=== PATIENT | female | born 1990 | race Caucasian/White ===

== ENCOUNTER 2022-02-05 17:32 | Emergency (ER) | payer OTHER, SELFPAY ==
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
[2022-02-05 17:53] VITALS: BP 143/71; PULSE 67; RESP 18; TEMP 36.6; O2SAT 100
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
== END 2022-02-05 19:25 | disposition home or self-care (01) ==
PROVIDERS: Emergency Provider Nurse Practitioner
DX: M54.6 Pain in thoracic spine (principal); E78.00 Pure hypercholesterolemia, unspecified; I10 Essential (primary) hypertension; G40.909 Epilepsy, unspecified, not intractable, without status epilepticus
CPT/HCPCS: 72072; 72100; 99213; G0463

== ENCOUNTER 2022-02-14 15:58 | Emergency (ER) | payer OTHER, SELFPAY ==
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
[2022-02-14 16:03] VITALS: BP 137/74; PULSE 137; PULSE 88; RESP 16; TEMP 36.7; O2SAT 99
== END 2022-02-14 16:37 | disposition home or self-care (01) ==
PROVIDERS: Emergency Provider Nurse Practitioner Family
DX: S90.01XA Contusion of right ankle, initial encounter (principal); Y35.811A Legal intervention involving manhandling, law enforcement official injured, initial encounter; G40.909 Epilepsy, unspecified, not intractable, without status epilepticus; E78.00 Pure hypercholesterolemia, unspecified; I10 Essential (primary) hypertension
CPT/HCPCS: 73610; 99213; G0463

== ENCOUNTER 2022-03-04 10:14 | Emergency (ER) | payer OTHER, SELFPAY ==
--- NOTE | 2022-03-04 10:17 | ED.URI ---
HPI - URI/Sore Throat General Chief Complaint: Upper Respiratory Infection Stated Complaint: congestion aches Time Seen by Provider: 03/04/22 10:17 Source: patient and RN notes reviewed History of Present Illness HPI Narrative: Patient is a 31-year-old female who presents the urgent care with complaints of congestion, runny nose and cough. Patient also reports a mild sore throat. Denies of any fever or body aches. States that it started 1 week ago and she has been taking DayQuil, NyQuil, Mucinex and [place] all. Patient denies of any known ill contacts but states her girlfriend did start running a fever last night. No other acute complaints. No acute distress noted. Patient aware of the plan of care. Some parts of this dictation were generated by voice recognition software and may contain typographical and/or grammatical inaccuracies. Related Data Home Medications Medication Instructions Recorded Confirmed levetiracetam [Keppra] 500 mg PO BID 02/05/22 02/14/22 losartan 100 mg PO DAILY 02/05/22 02/14/22 metoprolol succinate [Toprol XL] 50 mg PO DAILY 02/05/22 02/14/22 rosuvastatin [Crestor] 10 mg PO DAILY 02/05/22 02/14/22 albuterol 90 mcg INHALATION Q6H PRN 03/04/22 03/04/22 Allergies Allergy/AdvReac Type Severity Reaction Status Date / Time sertraline [From Zoloft] Allergy Rash Verified 03/04/22 10:34 Review of Systems Review of Systems: CONSTITUTIONAL: Denies fever, chills, or sweats. EYES: Denies visual changes, redness, or discharge. ENT: Reports of congestion, sore throat and postnasal drainage CARDIOVASCULAR: Denies chest pain, palpitations, or edema. RESPIRATORY: Reports of cough GASTROINTESTINAL: Denies abdominal pain, nausea, vomiting, or diarrhea. GENITOURINARY: Denies dysuria or hematuria. SKIN: Denies rash or itching. MUSCULOSKELETAL: Denies back pain, joint pain, or myalgia. NEUROLOGIC: Denies headache, numbness, or weakness. All other systems reviewed are negative, except as documented in HPI. [facility] Comments At the time of my signature, I reviewed and agree with the nursing past medical, surgical, social, and family history. There is no relevant family history pertinent to the patient complaint. Exam Narrative: GENERAL: This is a well-nourished, well-developed patient, in no apparent distress. HEAD: normocephalic, atraumatic. EYES: PERRL. Sclera clear/white. Vision is grossly intact. EARS: External ears normal, auditory canals clear and without drainage, TMs normal without perforation. Hearing grossly intact. NOSE: External nose normal with no obvious nasal discharge, nares without redness, no rhinorrhea. THROAT: Mucous membranes moist, posterior pharynx clear. Moderate postnasal drainage NECK: Neck supple CARDIOVASCULAR: Regular rate and rhythm without murmurs, gallops, or rubs. RESPIRATORY: Clear to auscultation. Breath sounds equal bilaterally. No wheezes, rales, or rhonchi. SKIN: warm, intact with no suspicious lesions or rash, good texture and turgor. NEURO: awake, alert, and oriented to person, place and time. There were no obvious focal neurologic abnormalities. EXTREMITIES: No clubbing, cyanosis, or edema. Course Course Level of Care: Express Care Visit Vital Signs Vital signs: Vital Signs Temperature 98.0 F 03/04/22 10:23 Pulse Rate 77 03/04/22 10:23 Respiratory Rate 14 03/04/22 10:23 Blood Pressure 149/80 H 03/04/22 10:23 Pulse Oximetry 100 03/04/22 10:23 Temperature 98.0 F 03/04/22 10:23 Pulse Rate 77 03/04/22 10:23 Respiratory Rate 14 03/04/22 10:23 Blood Pressure 149/80 H 03/04/22 10:23 Pulse Oximetry 100 03/04/22 10:23 Reviewed-patient is informed that they may have pre-hypertension or hypertension based on a blood pressure reading in the department. I recommend the patient call the primary care provider listed on their discharge instructions or a physician of their choice this week to arrange follow-up for further evaluation of possible
[2022-03-04 10:23] VITALS: BP 149/80; PULSE 77; RESP 14; TEMP 36.7; O2SAT 100
== END 2022-03-04 11:27 | disposition home or self-care (01) ==
PROVIDERS: Emergency Provider Nurse Practitioner Family
DX: J06.9 Acute upper respiratory infection, unspecified (principal); E78.00 Pure hypercholesterolemia, unspecified; I10 Essential (primary) hypertension; J45.909 Unspecified asthma, uncomplicated; D49.89 Neoplasm of unspecified behavior of other specified sites
CPT/HCPCS: 99213; G0463

== ENCOUNTER 2022-04-23 12:32 | Emergency (ER) | payer OTHER, SELFPAY ==
--- NOTE | ~2022-04-23 | XR_ITS ---
EXAMINATION: XR forearm LT 2V DATE: 04/23/2022 13:22 INDICATION: Left forearm injury. TECHNIQUE: 2 views of left forearm were obtained. COMPARISON: None. FINDINGS: Bone alignment is normal. No fracture. Joint spaces are well maintained. There is no elbow joint effusion. IMPRESSION: 1. No fracture. Reviewed, dictated and finalized at location B. IMPRESSION: 1. No fracture.
--- NOTE | ~2022-04-23 | XR_ITS ---
EXAMINATION: XR forearm RT 2V DATE: 04/23/2022 13:23 INDICATION: Right forearm injury. TECHNIQUE: 2 views of right forearm were obtained. COMPARISON: None. FINDINGS: Bone alignment is normal. No fracture. Joint spaces are well maintained. There is no elbow joint effusion. IMPRESSION: 1. No fracture. Reviewed, dictated and finalized at location B. IMPRESSION: 1. No fracture.
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
[2022-04-23 12:45] VITALS: BP 132/41; PULSE 61; RESP 20; TEMP 36.8; O2SAT 100
== END 2022-04-23 13:40 | disposition home or self-care (01) ==
PROVIDERS: Emergency Provider Nurse Practitioner
DX: S59.912A Unspecified injury of left forearm, initial encounter (principal); S59.911A Unspecified injury of right forearm, initial encounter; X58.XXXA Exposure to other specified factors, initial encounter
CPT/HCPCS: 73090; 99214; G0463

== ENCOUNTER 2022-06-27 23:18 | Observation (INO) | payer OTHER, SELFPAY ==
--- NOTE | ~2022-06-27 | CT_ITS ---
EXAMINATION: CT abdomen pelvis w con DATE: 06/28/2022 00:23 INDICATION: Abdomen pain TECHNIQUE: Computed tomography (CT) of the abdomen and pelvis was performed without intravenous contr ast. The dose-length product was 897.37 mGy-cm. Automated exposure control and iterative reconstructi on technique were employed. COMPARISON: None. FINDINGS: There is a 4 mm right middle lobe nodule. Otherwise, lung bases unremarkable. Heart size no rmal. No significant pleural or pericardial effusion. No significant vascular abnormality. No lymphad enopathy. The liver, spleen, pancreas, adrenal glands and kidneys are unremarkable. Appendix is thickened with enhancement and surrounding inflammatory change, consistent with acute uncomplicated appendicitis. No evidence for perforation or abscess. No free air. No abnormal pelvic masses. Mild sclerosis of the s acroiliac joints, left greater than right, possibly secondary to sacroiliitis. IMPRESSION: 1. Acute uncomplicated appendicitis. Reviewed, dictated and finalized at location B.
[2022-06-27 23:21] VITALS: BP 150/82; PULSE 82; RESP 16; TEMP 36.4; O2SAT 100
--- NOTE | 2022-06-27 23:38 | ED.ABDPAIN ---
HPI - Abdominal Pain General Chief Complaint: Abdominal Pain Stated Complaint: RLQ pain x1 day. Time Seen by Provider: 06/27/22 23:27 Source: RN notes reviewed History of Present Illness HPI narrative: Patient presents emergency room from home for abdominal pain. Patient states pain is located the right lower quadrant does not radiate. Pain is described as sharp and stabbing pain does not radiate associated with nausea vomiting. Denies any diarrhea denies any fevers or chills chest pain or shortness of breath. Patient states he been taking ibuprofen at home with minimal relief Related Data Home Medications Medication Instructions Recorded Confirmed levetiracetam 500 mg tablet 500 mg PO BID 02/05/22 04/23/22 (Keppra) losartan 100 mg tablet 100 mg PO DAILY 02/05/22 04/23/22 metoprolol succinate 50 mg 50 mg PO DAILY 02/05/22 04/23/22 tablet,extended release 24 hr (Toprol XL) rosuvastatin 10 mg tablet (Crestor) 10 mg PO DAILY 02/05/22 04/23/22 albuterol sulfate 0.63 mg/3 mL 3 ml continuous nebulization Q4-6H 04/23/22 04/23/22 solution for nebulization PRN Shortness Of Breath Or Wheezing albuterol sulfate 90 mcg/actuation 2 puff inhalation QID PRN 04/23/22 04/23/22 aerosol inhaler Shortness Of Breath Or Wheezing carvedilol 25 mg tablet (Coreg) 1 tablet PO BID 04/23/22 04/23/22 Allergies Allergy/AdvReac Type Severity Reaction Status Date / Time sertraline [From Zoloft] Allergy Mild Rash Verified 06/27/22 23:33 Review of Systems Review of Systems: Gen.: Denies fevers or chills ENT: Denies congestion Respiratory: Denies shortness of breath or cough CV: Denies chest pain or palpitations GI: see HPI denies burning, urgency, frequency or hematuria Musculoskeletal: Denies back pain or muscle pain Neuro: Denies numbness, tingling, weakness or focal weakness Skin: Denies rash Except as documented, all other systems reviewed and negative PMFSH Past Medical History Medical History (Updated 06/28/22 @ 00:53 by Alfred Crespo DO) Hypertension Social History Social History (Updated 06/27/22 @ 23:40 by Alfred Crespo DO) Smoking status: Current every day smoker Exam Narrative: APPEARANCE: No acute distress, nontoxic, resting in bed HEENT: Normocephalic, atraumatic, OMM RESPIRATORY: No respiratory distress, clear to auscultation bilaterally with no rhonchi wheezing or rales CARDIOVASCULAR: RRR s murmur ABDOMINAL: Soft nondistended tender palpation right lower quadrant no tenderness right upper quadrant and left upper quadrant left lower quadrant no rebound or guarding MUSCULOSKELETAl: Moves all extremities. No clubbing, cyanosis or edema. NEURO: Awake and alert. Following commands, speech normal, no focal deficits SKIN:: Warm, dry. Normal Color PSYCHIATRIC: Normal affect/mood Course Course Emergency Course: Discussed with Dr. Toro presentation work-up agrees with admission. Patient is very anxious about staying in the hospital Ativan given Discussed with patient and family results of workup and diagnosis. Discussed need for admission. Patient and family understand and agree to current treatment plan Vital Signs Vital signs: Vital Signs Temperature 97.6 F 06/27/22 23:21 Pulse Rate 82 06/27/22 23:21 Respiratory Rate 16 06/27/22 23:21 Blood Pressure 150/82 H 06/27/22 23:21 Pulse Oximetry 100 06/27/22 23:21 Oxygen Delivery Room Air 06/27/22 23:21 Temperature 98.3 F 06/28/22 00:30 Pulse Rate 80 06/28/22 00:30 Respiratory Rate 16 06/28/22 00:30 Blood Pressure 132/78 06/28/22 00:30 Pulse Oximetry 98 06/28/22 00:30 Oxygen Delivery Room Air 06/27/22 23:21 MDM - Abdominal Pain Lab Data Result diagrams: 06/27/22 23:34 06/27/22 23:34 Labs: Lab Results 06/27/22 06/27/22 06/27/22 Range/Units 23:34 23:34 23:34 WBC 13.3 H (4.5-10.0) K/mm3 RBC 4.34 (4.2-5.4) M/mm3 Hgb 13.4 (12.0-15.0) g/dL Hct
[2022-06-27 23:41] LABS: Basophils Absolute Auto 0.1 K/mm3 (0.0-0.1); Basophils Percent Auto 0.5 % (0.2-1.2); Eosinophils Absolute Auto 0.2 K/mm3 (0-0.3); Eosinophils Percent Auto 1.4 % (0-4.4); Hemoglobin 13.4 g/dL (12.0-15.0); Immature Granulocyte Absolute 0.04 K/mm3 (0.00-0.031); Immature Granulocyte Percent A 0.3 % (0-0.5); Lymphocytes Absolute Auto 2.69 K/mm3 (0.9-3.2); Lymphocytes Percent Auto 20.3 % (18.3-44.2); Mean Corpuscular HGB Conc 32.7 g/dl (32-36); Mean Corpuscular Hemoglobin 30.9 pg (26-34); Mean Corpuscular Volume 94.5 fl (80-100); Mean Platelet Volume 9.5 fl (7.4-10.4); Monocytes Absolute Auto 0.9 K/mm3 (0.1-0.6); Neutrophils Absolute Auto 9.4 K/mm3 (1.3-6.7); Neutrophils Percent Auto 70.5 % (45.5-73.1); Platelet Count Result 260 k/mm3 (150-375); Red Blood Count 4.34 M/mm3 (4.2-5.4); Red Cell Distribution Width 13.2 % (11.5-14.5); White Blood Count 13.3 K/mm3 (4.5-10.0)
[2022-06-27 23:42] LABS: Appearance Urine Clear (Clear); Bilirubin Urine Negative (Negative); Blood Urine 2+ (Negative); Color Urine Yellow (Yellow); Glucose Urine UA Negative (Negative); Ketones Urine Negative (Negative); Leukocyte Esterase Ur Negative LEU/UL (Negative); Nitrate Urine Negative (Negative); Protein Urine Negative (Negative); Specific Grav Ur >= 1.030 (1.001-1.035)
[2022-06-27] MEDS: SODIUM CHLORIDE 0.9% IV 1,000 ML 999 ML IV CONT (23:47)
[2022-06-27] MEDS: ONDANSETRON INJ 4 MG/2 ML VIAL IV PUSH (23:47)
[2022-06-27] MEDS: MORPHINE SULFATE (*CRX) 4 MG/ML INJ IV PUSH (23:48)
[2022-06-28] VITALS (13 sets, daily range): BP systolic 116–140; BP diastolic 54–81; PULSE 56–90; RESP 16–22; TEMP 36.1–36.8; O2SAT 95–100; BMI 38.7; BMI 38.5
[2022-06-28 00:03] LABS: Alanine Aminotransferase 11 U/L (6-35); Albumin Level 4.5 g/dL (3.5-5.1); Alkaline Phosphatase 63 U/L (38-126); Anion Gap 10 mmol/L (8-16); Aspartate Amino Transferase 25 U/L (14-36); Bilirubin,Total 0.5 mg/dL (0.2-1.3); Blood Urea Nitrogen 16 mg/dL (7-17); Calcium 8.8 mg/dL (8.4-10.2); Carbon Dioxide 26 mmol/L (22-30); Chloride 102 mmol/L (98-107); Estimated CRCL calculation 86 ml/min; Estimated Glomerular Filt Rate > 60; Glucose 97 mg/dL (65-110); Lipase 30 U/L (23-300); Potassium 3.7 mmol/L (3.4-5.0); Sodium 138 mmol/L (137-145)
[2022-06-28 00:26] LABS: Add Urine Microscopic? YES; Bacteria Urine Trace /hpf; Mucus Urine Few /lpf; Squamous Epithelial Cell Urine Many /hpf (Few); WBC Urine 0-3 /hpf
[2022-06-28] MEDS: LORazepam INJ (*CRX) 2 MG/ML VIAL 0.5 MG IV PUSH (00:56)
[2022-06-28] MEDS: SODIUM CHLORIDE 0.9% IV 1,000 ML 125 ML IV CONT (04:00)
[2022-06-28 04:18] LABS: SARS-CoV-2 RNA PCR Negative
[2022-06-28] MEDS: MORPHINE SULFATE (*CRX) 4 MG/ML INJ IV PUSH (05:15)
[2022-06-28] MEDS: ONDANSETRON INJ 4 MG/2 ML VIAL IV PUSH (05:15)
--- NOTE | 2022-06-28 05:29 | ADMGEN ---
This patient, Melanie Huerta, was admitted to [address] [place] [address] Room 316-01. Patient/family oriented to hospital policies and general routines including ID bracelet, bed and alarms, visiting hours, pain management, procedures, bathroom and other care routines, personal items, smoking policy, room service/diet, and visiting hours. Information on how to activate the Rapid Response Team has been discussed. Patient/Family are encouraged to report perceived risks to care and to ask questions if they do not understand what they are told or what they should do.
--- NOTE | 2022-06-28 07:41 | PM.IMHP ---
H&P: HPI History of Present Illness Date/Time: 06/28/22 07:41 Chief Complaint: acute appendicitis Narrative: Pt is a 32 y/o F c progressively worsening abd pain over last 2-3 days. Pt reports pain was initially mild and diffuse in nature. Over last 24 hours, pain is constant, stabbing, and localized to RLQ. Pt reports anorexia o/w denies any assoc sx. Pt denies any previous episodes. Review of Systems Constitutional: Constitutional: Reports as per HPI, Reports anorexia, Denies chills, Reports fatigue, Denies fever(s), Reports lethargy, Reports poor appetite, Reports weakness, Denies weight gain and Denies weight loss Eyes: Eyes: Reports no additional eye complaints ENT: Reports system reviewed and no additional complaints, except as documented Cardiovascular: Cardiovascular: Reports no additional cardiovascular complaints Respiratory: Respiratory: Reports no additional respiratory complaints Gastrointestinal: Gastrointestinal: Reports as per HPI, Reports abdominal pain, Reports bloating, Reports GI cramping, Denies nausea and Denies vomiting Genitourinary: Genitourinary: Reports no additional female genitourinary complaints Musculoskeletal: Musculoskeletal: Reports no additional musculoskeletal complaints Integumentary/Breasts: Skin/Breast: Reports system reviewed and no additional complaints, except as docu Neurologic: Reports system reviewed and no additional complaints, except as documented Psychiatric: Psychiatric: Reports no additional psychiatric complaints Endocrine: Endocrine: Reports no additional endocrine complaints Hematologic/Lymphatic: Hematologic/Lymphatic: Reports no additional hematologic/lymphatic complaints Allergic/Immunologic: Allergic/Immunologic: Reports no additional allergic/immunologic complaints [facility] Past Medical History Medical History Hypertension Social History Social History Smoking packs per day: 0.25 Smoking cigarettes per day: 5.0 Smoking status: Current every day smoker Tobacco type: cigarettes Alcohol intake: current Drinks per week: 6 Substance use type: marijuana Spiritual care concerns: No Meds Home Medications and Allergies Home Medications Medication Instructions Recorded Confirmed Type levetiracetam 500 mg tablet 500 mg PO BID 02/05/22 06/28/22 History (Keruss) losartan 100 mg tablet 100 mg PO DAILY 02/05/22 06/28/22 History metoprolol succinate 50 mg 50 mg PO DAILY 02/05/22 06/28/22 History tablet,extended release 24 hr (Toprol XL) rosuvastatin 10 mg tablet (Crestor) 10 mg PO DAILY 02/05/22 06/28/22 History albuterol sulfate 0.63 mg/3 mL 3 ml continuous nebulization Q4-6H 04/23/22 06/28/22 History solution for nebulization PRN Shortness Of Breath Or Wheezing albuterol sulfate 90 mcg/actuation 2 puff inhalation QID PRN 04/23/22 06/28/22 History aerosol inhaler Shortness Of Breath Or Wheezing carvedilol 25 mg tablet (Coreg) 1 tablet PO BID 04/23/22 06/28/22 History Allergies Allergy/AdvReac Type Severity Reaction Status Date / Time sertraline [From Zoloft] Allergy Mild Rash Verified 06/27/22 23:33 Vital Signs Vital Signs - 24 hr 06/27/22 23:21 06/28/22 00:30 06/28/22 01:21 Temperature 36.4 C 36.8 C 36.3 C L Pulse Rate 82 80 78 Respiratory Rate 16 16 16 Blood Pressure 150/82 H 132/78 140/81 Pulse Oximetry 100 98 98 Oxygen Delivery Room Air 06/28/22 02:19 06/28/22 05:41 Temperature 36.3 C L 36.4 C L Pulse Rate 78 75 Respiratory Rate 16 20 Blood Pressure 125/78 133/54 L Pulse Oximetry 98 99 Oxygen Delivery Exam Const: General: cooperative, acute distress moderate, ill appearing and uncomfortable HENMT: Head: normal to inspection, normocephalic and atraumatic Eyes: General: appearance normal, both eyes and all related structures Neck: Neck: normal visual inspection, full ROM and n
--- NOTE | 2022-06-28 07:45 | PC.NURSE ---
To OR via bed.
--- NOTE | 2022-06-28 07:49 | WPDHPUPDATE1 ---
History and Physical Update Update Date/Time: 06/28/22 07:49 History and Physical has been reviewed, including an updated exam of the patient. There are NO changes in the patient's condition. Risks, benefits, and alternatives have been discussed and questions answered. Patient agrees to proceed with procedure.
--- NOTE | 2022-06-28 08:03 | WPDANESEPPF ---
Anes - Initial Pre Proc Eval Procedure: Operation Date: 06/28/22 08:15 Proposed Procedures p Laparoscopic Appendectomy - Rachelle Toro MD Date/Time: 06/28/22 08:03 Surgeon: Rachelle Toro MD Pre Op Diagnosis: Acute appendicitis Patient Data Age: 32 Gender: F Height: 1.52 m Weight: 89.6 kg Last Vital Signs Temp 36.4 C L 06/28/22 05:41 Pulse 75 06/28/22 05:41 Resp 20 06/28/22 05:41 BP 133/54 L 06/28/22 05:41 Pulse Ox 99 06/28/22 05:41 O2 Del Method Room Air 06/27/22 23:21 Allergies Allergy/AdvReac Type Severity Reaction Status Date / Time sertraline [From Zoloft] Allergy Mild Rash Verified 06/27/22 23:33 Home Medications Medication Instructions Recorded Confirmed Type levetiracetam 500 mg tablet 500 mg PO BID 02/05/22 06/28/22 History (Keppra) losartan 100 mg tablet 100 mg PO DAILY 02/05/22 06/28/22 History metoprolol succinate 50 mg 50 mg PO DAILY 02/05/22 06/28/22 History tablet,extended release 24 hr (Toprol XL) rosuvastatin 10 mg tablet (Crestor) 10 mg PO DAILY 02/05/22 06/28/22 History albuterol sulfate 0.63 mg/3 mL 3 ml continuous nebulization Q4-6H 04/23/22 06/28/22 History solution for nebulization PRN Shortness Of Breath Or Wheezing albuterol sulfate 90 mcg/actuation 2 puff inhalation QID PRN 04/23/22 06/28/22 History aerosol inhaler Shortness Of Breath Or Wheezing carvedilol 25 mg tablet (Coreg) 1 tablet PO BID 04/23/22 06/28/22 History Laboratory Tests 06/27/22 06/27/22 06/27/22 23:34 23:34 23:34 WBC 13.3 K/mm3 H K/mm3 (4.5-10.0) RBC 4.34 M/mm3 M/mm3 (4.2-5.4) Hgb 13.4 g/dL g/dL (12.0-15.0) Hct 41.0 % % (37.0-47.0) MCV 94.5 fl fl (80-100) MCH 30.9 pg pg (26-34) MCHC 32.7 g/dl g/dl (32-36) RDW 13.2 % % (11.5-14.5) Plt Count 260 k/mm3 k/mm3 (150-375) MPV 9.5 fl fl (7.4-10.4) Immature Gran % (Auto) 0.3 % % (0-0.5) Neut % (Auto) 70.5 % % (45.5-73.1) Lymph % (Auto) 20.3 % % (18.3-44.2) [place] % (Auto) 7.0 % % (2.6-8.5) Eos % (Auto) 1.4 % % (0-4.4) Baso % (Auto) 0.5 % % (0.2-1.2) Lymph # (Auto) 2.69 K/mm3 K/mm3 (0.9-3.2) [place] # (Auto) 0.9 K/mm3 H K/mm3 (0.1-0.6) Eos # (Auto) 0.2 K/mm3 K/mm3 (0-0.3) Baso # (Auto) 0.1 K/mm3 K/mm3 (0.0-0.1) Abs Immat Gran (auto) 0.04 K/mm3 H K/mm3 (0.00-0.031) Absolute Neuts (auto) 9.4 K/mm3 H K/mm3 (1.3-6.7) Absolute Nucleated RBC 0.0 K/mm3 K/mm3 (0.0-0.012) Nucleated RBC % 0.0 % % (0.0-0.2) Sodium 138 mmol/L mmol/L (137-145) Potassium 3.7 mmol/L mmol/L (3.4-5.0) Chloride 102 mmol/L mmol/L (98-107) Carbon Dioxide 26 mmol/L mmol/L (22-30) Anion Gap 10 mmol/L mmol/L (8-16) BUN 16 mg/dL mg/dL (7-17) Creatinine 0.80 mg/dL mg/dL (0.7-1.0) Estim Creat Clear Calc 86 ml/min ml/min Estimated GFR > 60 (59 - ) Glucose 97 mg/dL mg/dL (65-110) Calcium 8.8 mg/dL mg/dL (8.4-10.2) Total Bilirubin 0.5 mg/dL mg/dL (0.2-1.3) AST 25 U/L U/L (14-36) ALT 11 U/L U/L (6-35) Alkaline Phosphatase 63 U/L U/L (38-126) Total Protein 8.0 g/dL g/dL (6.3-8.2) Albumin 4.5 g/dL g/dL (3.5-5.1) Lipase 30 U/L U/L (23-300) Urine Color Yellow (Yellow) Urine Appearance Clear (Clear) Urine pH 6.0 (5.0-9.0) Ur Specific [place] >= 1.030 (1.001-1.035) Urine Protein Negative mg/dL mg/dL (Negative) Urine Glucose (UA) Negative mg/dL mg/dL (Negative) Urine Ketones Negative mg/dL mg/dL (Negative) Ur Blood (Man) 2+ H (Negative) Urine Nitrate Negative (Negative)
[2022-06-28] MEDS: LACTATED RINGERS 1,000 ML 30 ML IV CONT (08:22)
--- NOTE | 2022-06-28 08:27 | SUR.PREOP ---
Addendum entered by Ryann Vuong RN 06/28/22 08:28: per Dr Toro no additional antibiotic ordered Original Note: Kelsey delcid has patient cell phone.
[2022-06-28] MEDS: BUPIVACAINE/EPINEPHRINE 0.25% 50 ML VIAL 30 ML INFILTRATE (08:41)
--- NOTE | 2022-06-28 09:30 | W.PM.PROC2 ---
Procedure Note - Detailed Date of Procedure 06/28/22 Pre-op Diagnosis Acute appendicitis Post-op Diagnosis Same Procedure Performed laparoscopic appendectomy Surgeon Rachelle Toro MD Anesthesia General Indications 32 y/o F presenting to ED c acute appendicitis Findings acute appendicitis no evidence of perforation, appendix in retrocecal position Description of Procedure The patient was taken to the operating room and placed in the supine position. After adequate induction of general anesthesia, the patient was prepped and draped in the normal sterile fashion. A time-out was then done to verify the patient's identity, as well as the procedure being performed. I began by making a 5 mm incision in the infraumbilical region, through this a Veress needle was placed in the peritoneal cavity. CO2 gas was then insufflated and after adequate pneumoperitoneum was achieved the Veress needle was removed. Then placed a 5 mm Optiview trocar under direct visualization into the peritoneal cavity. I then insufflated through this trocar site and the endoscope was placed into the trocar. Under direct visualization, placed 2 further 5 mm suprapubic port as well as an additional 12 mm port in the left lower abdomen. At this point identified the cecum, I retracted the cecum both medially and superiorly allowing me to expose the appendix. The appendix was noted to be dilated and inflamed. The appendix was noted to be very adherent to the right lateral sidewall and was slightly retrocecal. I was able to bluntly dissect the appendix from these adhesions. I then was able to locate the base of the appendix with the cecum. I created a window with the [place] dissector between the appendix itself and the mesoappendix. I then transected the mesoappendix with a white vascular staple load. The Endo-STEVE was then reloaded with a blue staple load and I transected the base of the appendix. Once the specimen was completely detached, an endo-pouch was placed into the 12 mm port site and the specimen was removed through the endo-pouch. The appendiceal specimen will be sent to pathology for further review. I then copiously irrigated the right lower quadrant. Hemostasis was noted at both staple lines no other pathology was seen in this area. I then moved the camera to the suprapubic port to check our its port of entry. No iatrogenic injury or other pathology was noted in the upper abdomen. I then closed the 12 mm port site with a Shiva code and 0 Vicryl suture under direct visualization. At this point, the abdomen was desufflated and all ports were removed. All port sites were closed with 4 Monocryl subcuticular suture. Dermabond was placed on all wounds. The patient tolerated the procedure well and was extubated in the operating room postop. She will be sent to the recovery room in stable condition. Estimated Blood Loss 10 Drains No Packing No Pathology Yes Complications No immediate complications Condition Stable Disposition PACU [facility] Billing Surgery - Charge Forward: Surgery Billing
[2022-06-28] MEDS: HYDROcodone/acetaminophen (*CRX) 5-325 MG TABLET 1 TAB PO (12:10)
--- NOTE | 2022-07-03 11:00 | PM.DS ---
DS: Admitting Diagnosis Discharge Date 06/28/22 Admitting Diagnosis acute appendicitis DS: Discharge Diagnosis Discharge Diagnosis (1) Acute appendicitis: Code(s): K35.80 - Unspecified acute appendicitis Status: Acute Assessment and Plan: s/p lap appy, cont routine postop care, home c po analgesia, f/u 2 wks DS: Summary Hospital Course Reason for hospitalization: acute appendicitis Hospital Course: 32 y/o F presenting to ED c/o RLQ abd pain. Workup in ED, including imaging, significant for acute appendicitis. Pt admitted and made NPO and started on IV abx. Upon evaluation by surgery, pt taken to OR following am for lap appendectomy, please see op report for details. Pt did well postop and transferred back to surgical floor. Pt able to rosie diet and ambulate s issue. She will be sent home c po analgesia and f/u 2 wks. Status at Discharge Functional status at discharge: independent ambulation Overall status at discharge: patient is back to baseline Time Spent with Patient Time attestation: Total time spent providing and/or coordinating discharge services: Exam Const: General: cooperative, comfortable and no acute distress Resp: Auscultation: clear to auscultation bilaterally Cardio: Rate: regular rate Rhythm: regular rhythm GI: Inspection: normal to inspection, distended and incision GI Palp: Yes abdominal tenderness and Yes Soft to palpation DS: Data Data Completed and Pending Completed studies during hospitalization: Pending at discharge 06/28/22 08:36 Surgical [PTH] Routine Discharge Plan Discharge Attending physician on discharge: Rachelle Toro Consulting providers: Wilfredo Dewey ; Devyn Dillon Discharging Clinician: Rachelle Toro Anticipated Discharge Date/Time: 06/28/22 13:00 Patient Disposition: Home, Self-Care Activity: other - see discharge instructions Diet: other - see discharge instructions Wound Care Instructions: other - see discharge instructions Discharge Instructions: DISCHARGE INSTRUCTION SHEET FOR HERNIA, GALLBLADDER AND APPENDIX SURGERIES DR. TORO PATIENT TO TAKE HOME 1. May shower in 24 hours, no soaking in bath x 2weeks. 2. Call office for: Wound increasingly painful or bleeding Vomiting Fever of greater than 101 degrees 3. If no bowel movement for three days, take 1 oz. (30 ml) Milk of Magnesia or MiraLax 17g 1 to 2 times daily. 4. No heavy lifting > 10-15 pounds x 6 weeks for hernia repairs and 2 weeks for laparoscopic cholecystectomy or appendectomy. 5. No driving for 3 days or while taking narcotic pain medications. 6. Ice to surgical site for 48 hours (30 min on, then 30 min off). 7. Up walking 10-30 minutes three times per day. 8. Resume previous home medications. 9. Follow-up 10-14 days in office for wound check or as previously scheduled. ([id number]) 10. Oral pain medications prescription to be sent to pharmacy. Take Tylenol 500mg every 6 hours and Ibuprofen 600mg every 6 hours for the first 2 days, then as needed. 11. NUTRITION: Start out by drinking fluids and increase your diet as tolerated. If you experience nausea, try dry toast, crackers, and 7-UP. If nausea or vomiting persists, contact your surgeon?s office. 12. Gallbladders-Low Fat Diet for 2 weeks (send care note of low fat diet) 13. Inguinal Hernias-wear scrotal support for 48 hours 14. Abdominal Hernias-if sent home with abdominal binder, wear for the first 2 weeks (may remove to shower or at night to sleep).
== END 2022-06-28 14:00 | disposition home or self-care (01) ==
LOC: ANHED 06-28 00:57 → ANH3MEDSUR 06-28 02:37
PROVIDERS: Admitting Provider Surgery; Emergency Provider Emergency Medicine; Visit Provider Surgery
PROC: 0DTJ4ZZ Resection of Appendix, Percutaneous Endoscopic Approach (ICD-10-PCS; CPT 44970; principal; 2022-06-28 08:15)
DX: K35.80 Unspecified acute appendicitis (principal); I10 Essential (primary) hypertension; F41.9 Anxiety disorder, unspecified; J45.909 Unspecified asthma, uncomplicated; G40.909 Epilepsy, unspecified, not intractable, without status epilepticus; F43.10 Post-traumatic stress disorder, unspecified; E66.9 Obesity, unspecified; Z68.38 Body mass index [BMI] 38.0-38.9, adult; F17.210 Nicotine dependence, cigarettes, uncomplicated; F12.90 Cannabis use, unspecified, uncomplicated; Z20.822 Contact with and (suspected) exposure to COVID-19; Z79.51 Long term (current) use of inhaled steroids; Z79.899 Other long term (current) drug therapy
CPT/HCPCS: 44970; 36415; 74177; 80053; 81001; 81025; 83690; 85025; 88304; 96361; 96365; 96366; 96374; 96375; 99285; A9270; C9803; G0378; G0379; J1100; J2060; J2250; J2270; J2405; J2543; J2704; J2710; J3010; J7030; J7120; Q9967; U0003; U0005

== ENCOUNTER 2022-08-01 09:07 | Emergency (ER) | payer OTHER, SELFPAY ==
--- NOTE | 2022-08-01 09:11 | ED.ABDPAIN ---
HPI - Abdominal Pain General Chief Complaint: Nausea/Vomiting/Diarrhea Stated Complaint: nausea /abdo pain Time Seen by Provider: 08/01/22 09:11 Source: patient and RN notes reviewed History of Present Illness HPI narrative: Patient is a 32-year-old female who presents the urgent care with complaints of abdominal discomfort, bloating, nausea and 1 episode of vomiting yesterday. Patient states that she has had the discomfort and nausea for the last month since she had her appendix removed. Patient states she went to her postop appointment and the surgeon told her that her left abdominal pain and bloating was normal . Patient states that she overall just does not feel well and does not feel that her symptoms are normal. Patient denies any urinary symptoms. Denies of any known fever. Patient is not taking anything [id number] for her symptoms. No other acute complaints. No acute distress noted. Patient aware of the plan of care. Some parts of this dictation were generated by voice recognition software and may contain typographical and/or grammatical inaccuracies. Related Data Home Medications Medication Instructions Recorded Confirmed levetiracetam 500 mg tablet 500 mg PO BID 02/05/22 08/01/22 (Keppra) losartan 100 mg tablet 100 mg PO DAILY 02/05/22 08/01/22 metoprolol succinate 50 mg 50 mg PO DAILY 02/05/22 07/10/22 tablet,extended release 24 hr (Toprol XL) rosuvastatin 10 mg tablet (Crestor) 10 mg PO DAILY 02/05/22 08/01/22 albuterol sulfate 90 mcg/actuation 2 puff inhalation QID PRN 04/23/22 08/01/22 aerosol inhaler Shortness Of Breath Or Wheezing carvedilol 25 mg tablet 25 mg PO DAILY 08/01/22 08/01/22 nicotine (polacrilex) 2 mg gum mg 08/01/22 rosuvastatin 10 mg tablet 10 mg PO DAILY 08/01/22 08/01/22 Allergies Allergy/AdvReac Type Severity Reaction Status Date / Time sertraline [From Zoloft] Allergy Mild Rash Verified 08/01/22 09:29 Review of Systems Review of Systems: CONSTITUTIONAL: Denies fever, chills, or sweats. EYES: Denies visual changes, redness, or discharge. ENT: Denies rhinorrhea, congestion, sore throat, or otalgia. CARDIOVASCULAR: Denies chest pain, palpitations, or edema. RESPIRATORY: Denies cough or dyspnea. GASTROINTESTINAL: Reports abdominal discomfort/bloating, nausea and one episode of vomiting GENITOURINARY: Denies dysuria or hematuria. SKIN: Denies rash or itching. MUSCULOSKELETAL: Denies back pain, joint pain, or myalgia. NEUROLOGIC: Denies headache, numbness, or weakness. All other systems reviewed are negative, except as documented in HPI. [facility] Past Medical History Medical History Anxiety Asthma Hypertension Obesity JASSON (obstructive sleep apnea) PTSD (post-traumatic stress disorder) Seizure disorder Surgical History Surgical History S/P laparoscopic appendectomy 06/28/22 Social History Social History Smoking packs per day: 0.25 Smoking cigarettes per day: 5.0 Smoking status: Current every day smoker Tobacco type: cigarettes Alcohol intake: current Drinks per week: 6 Substance use type: marijuana Spiritual care concerns: No Comments At the time of my signature, I reviewed and agree with the nursing past medical, surgical, social, and family history. There is no relevant family history pertinent to the patient complaint. Exam Narrative: GENERAL: This is a well-nourished, well-developed patient, in no apparent distress. HEAD: normocephalic, atraumatic. EYES: PERRL. Sclera clear/white. Vision is grossly intact. EARS: External ears normal NOSE: External nose normal with no obvious nasal discharge, nares without redness, no rhinorrhea. THROAT: Mucous membranes moist NECK: Neck supple CARDIOVASCULAR: Regular rate and rhythm without murmurs, gallops, or rubs. RESPIRATORY: Sue
[2022-08-01 09:12] VITALS: BP 129/68; PULSE 65; RESP 20; TEMP 36.6; O2SAT 100
== END 2022-08-01 09:47 | disposition short-term general hospital (02) ==
PROVIDERS: Emergency Provider Nurse Practitioner Family
DX: R10.32 Left lower quadrant pain (principal); I10 Essential (primary) hypertension; G47.33 Obstructive sleep apnea (adult) (pediatric); G40.909 Epilepsy, unspecified, not intractable, without status epilepticus; J45.909 Unspecified asthma, uncomplicated; E66.9 Obesity, unspecified; Z68.38 Body mass index [BMI] 38.0-38.9, adult; F17.210 Nicotine dependence, cigarettes, uncomplicated
CPT/HCPCS: 81003; 99212; G0463

== ENCOUNTER 2023-09-19 16:44 | Emergency (ER) | payer OTHER, SELFPAY ==
[2023-09-19 16:51] VITALS: BP 153/79; PULSE 73; RESP 16; TEMP 36.3; O2SAT 99
[2023-09-19 16:55] VITALS: BP 153/79; PULSE 73; RESP 16; TEMP 36.3; O2SAT 99
--- NOTE | 2023-09-19 17:06 | ED.EAR ---
HPI - Ear Problem General Chief complaint: Ear Stated complaint: Right Earache and Drainage Source: patient and RN notes reviewed Mode of arrival: ambulatory History of Present Illness HPI Narrative: 33 yo F presents to urgent care with visitor at side. Pt states she has been having right ear pain and yellow drainage x 1 week. Pt also reports an intermittent right lower toothache for months. Pt denies any other symptoms. Related Data Home Medications Medication Instructions Recorded Confirmed levetiracetam 500 mg tablet 500 mg PO BID 02/05/22 08/01/22 (Keppra) losartan 100 mg tablet 100 mg PO DAILY 02/05/22 08/01/22 metoprolol succinate 50 mg 50 mg PO DAILY 02/05/22 07/10/22 tablet,extended release 24 hr (Toprol XL) rosuvastatin 10 mg tablet (Crestor) 10 mg PO DAILY 02/05/22 08/01/22 albuterol sulfate 90 mcg/actuation 2 puff inhalation QID PRN 04/23/22 08/01/22 aerosol inhaler Shortness Of Breath Or Wheezing carvedilol 25 mg tablet 25 mg PO DAILY 08/01/22 08/01/22 nicotine (polacrilex) 2 mg gum mg 08/01/22 rosuvastatin 10 mg tablet 10 mg PO DAILY 08/01/22 08/01/22 fluoxetine 10 mg capsule mg 09/19/23 fluticasone 250 mcg-salmeterol 50 inhalation 09/19/23 mcg/dose blistr powdr for inhalation (Advair Diskus) lurasidone 20 mg tablet mg 09/19/23 Allergies Allergy/AdvReac Type Severity Reaction Status Date / Time sertraline [From Zoloft] Allergy Mild Rash Verified 08/01/22 09:29 Review of Systems Review of Systems: CONSTITUTIONAL: Denies fever, chills, or sweats. EYES: Denies visual changes, redness, or discharge. ENT: Denies sore throat CARDIOVASCULAR: Denies chest pain, palpitations, or edema. RESPIRATORY: Denies cough or dyspnea. GASTROINTESTINAL: Denies abdominal pain, nausea, vomiting, or diarrhea. GENITOURINARY: Denies dysuria or hematuria. SKIN: Denies rash or itching. MUSCULOSKELETAL: Denies back pain, joint pain, or myalgia. NEUROLOGIC: Denies headache, numbness, or weakness. Pertinent positives per HPI. [facility] Past Medical History Medical History Anxiety Asthma Hypertension Obesity JASSON (obstructive sleep apnea) PTSD (post-traumatic stress disorder) Seizure disorder Surgical History Surgical History S/P laparoscopic appendectomy 06/28/22 Social History Social History Smoking packs per day: 0.25 Smoking cigarettes per day: 5.0 Smoking status: Current every day smoker Tobacco type: cigarettes Alcohol intake: current Drinks per week: 6 Substance use type: marijuana Spiritual care concerns: No Comments At the time of my signature, I reviewed and agree with the nursing past medical, surgical, social, and family history. There is no relevant family history pertinent to the patient complaint. Exam Narrative: GENERAL: This is a well-nourished, well-developed patient, in no apparent distress. HEAD: normocephalic, atraumatic. EYES: Sclera clear/white. Vision is grossly intact. EARS: External ears normal, auditory canals clear and without drainage, left TM normal without perforation. Hearing grossly intact. Right TM erythemic and bulging. NOSE: External nose normal with no obvious nasal discharge, nares without redness, no rhinorrhea. THROAT: Mucous membranes moist, posterior pharynx clear. MOUTH: Tooth number 32 broken. no exudate or swelling surrounding the tooth. NECK: Neck supple, non-tender without lymphadenopathy, masses or thyromegaly. CARDIOVASCULAR: Regular rate and rhythm without murmurs, gallops, or rubs. RESPIRATORY: Clear to auscultation. Breath sounds equal bilaterally. No wheezes, rales, or rhonchi. GASTROINTESTINAL: Abdomen soft, non-tender, nondistended. Bowel sounds are active. No hepato-splenomegaly, or palpable masses. No guarding. SKIN: warm, intact with no suspicious lesi
== END 2023-09-19 17:14 | disposition home or self-care (01) ==
PROVIDERS: Emergency Provider Nurse Practitioner Family
DX: H66.91 Otitis media, unspecified, right ear (principal); F17.210 Nicotine dependence, cigarettes, uncomplicated; G40.909 Epilepsy, unspecified, not intractable, without status epilepticus; J45.909 Unspecified asthma, uncomplicated; I10 Essential (primary) hypertension; E66.9 Obesity, unspecified; Z68.37 Body mass index [BMI] 37.0-37.9, adult; F41.9 Anxiety disorder, unspecified
CPT/HCPCS: 99213; G0463

== ENCOUNTER 2024-04-21 14:25 | Emergency (ER) | payer OTHER, SELFPAY ==
[2024-04-21 14:33] VITALS: BP 149/71; PULSE 86; RESP 18; TEMP 36.9; O2SAT 98
[2024-04-21 14:41] VITALS: BP 149/71; PULSE 86; RESP 18; TEMP 36.9; O2SAT 98
--- NOTE | 2024-04-21 15:07 | ED.URI ---
HPI - URI/Sore Throat General Chief Complaint: Upper Respiratory Infection Stated Complaint: Chest Congestion/Sore Throat Time Seen by Provider: 04/21/24 15:07 Source: patient and RN notes reviewed Mode of arrival: ambulatory Limitations: no limitations History of Present Illness HPI Narrative: 33-year-old female presented for complaint of sinus congestion, pressure and postnasal drainage for 3 weeks. She has been taking [id number] antihistamine without relief. Denies shortness of breath, wheezing, nausea, vomiting, fevers or chills. History of asthma, smokes 1 ppd. MD elicited complaint: cough Related Data Home Medications Medication Instructions Recorded Confirmed levetiracetam 500 mg tablet 750 mg PO BID 02/05/22 08/01/22 (Keppra) losartan 100 mg tablet 100 mg PO DAILY 02/05/22 08/01/22 metoprolol succinate 50 mg 50 mg PO DAILY 02/05/22 07/10/22 tablet,extended release 24 hr (Toprol XL) rosuvastatin 10 mg tablet (Crestor) 10 mg PO DAILY 02/05/22 08/01/22 albuterol sulfate 90 mcg/actuation 2 puff inhalation QID PRN 04/23/22 08/01/22 aerosol inhaler Shortness Of Breath Or Wheezing carvedilol 25 mg tablet 25 mg PO DAILY 08/01/22 08/01/22 fluticasone 250 mcg-salmeterol 50 inhalation 09/19/23 mcg/dose blistr powdr for inhalation (Advair Diskus) melatonin 04/21/24 oxcarbazepine 150 mg tablet mg 04/21/24 Allergies Allergy/AdvReac Type Severity Reaction Status Date / Time sertraline [From Zoloft] Allergy Mild Rash Verified 04/21/24 14:36 Review of Systems Review of Systems: CONSTITUTIONAL: Denies malaise, chills, sweats, fever EYES: Denies visual changes, redness, or discharge ENT: Reports rhinorrhea, congestion, sinus pain, denies otalgia, sore throat CARDIOVASCULAR: Denies chest pain, palpitations, edema RESPIRATORY: Reports cough, post nasal drainage. Denies dyspnea GASTROINTESTINAL: Denies abdominal pain, nausea, vomiting, diarrhea SKIN: Denies rash or itching MUSCULOSKELETAL: denies myalgia NEUROLOGIC: Denies headache PMFSH Past Medical History Medical History Anxiety Asthma Hypertension Obesity JASSON (obstructive sleep apnea) PTSD (post-traumatic stress disorder) Seizure disorder Surgical History Surgical History S/P laparoscopic appendectomy 06/28/22 Social History Social History Smoking packs per day: 0.25 Smoking cigarettes per day: 5.0 Smoking status: Current every day smoker Tobacco type: cigarettes Alcohol intake: current Drinks per week: 6 Substance use type: marijuana Spiritual care concerns: No Exam Narrative: GENERAL: well-appearing EYES: PERRLA, conjunctivae clear ENT: Mucous membranes moist. TM pearly nunez with dull light reflex bilaterally; no tragal tenderness. Oropharynx not erythematous without lesions or exudate, no drooling, no hoarseness, no trismus, uvula midline. No tripod positioning, muffled voice, soft palate or pharyngeal wall bulging NECK: Supple. No lymphadenopathy CHEST: Clear to auscultation, breath sounds equal. No wheezing, rhonchi, rales, or stridor. No respiratory distress, speaks in full sentences. HEART: Regular rate and rhythm. No murmur heard. SKIN: Warm, dry, no rash. NEURO: Alert and oriented x3. PSYCH: Normal mood and affect Course Course Emergency Course: Patient is aware of diagnosis, understands and agrees to treatment plan. Anticipatory guidance given. Patient agrees to follow-up as directed and is aware of reasons to seek care at the emergency department. Portions of this record may have been created with voice recognition software Level of Care: Express Care Visit Vital Signs Vital signs: Vital Signs Temperature 98.4 F 04/21/24 14:33 Pulse Rate 86 04/21/24 14:33 Respiratory Rate 18 04/21/24 14:33 Blood Pr
== END 2024-04-21 15:24 | disposition home or self-care (01) ==
PROVIDERS: Emergency Provider Nurse Practitioner Family
DX: J32.9 Chronic sinusitis, unspecified (principal); F17.210 Nicotine dependence, cigarettes, uncomplicated; F12.90 Cannabis use, unspecified, uncomplicated; J45.909 Unspecified asthma, uncomplicated; I10 Essential (primary) hypertension; E66.9 Obesity, unspecified; Z68.41 Body mass index [BMI] 40.0-44.9, adult; G40.909 Epilepsy, unspecified, not intractable, without status epilepticus
CPT/HCPCS: 99213; G0463

== ENCOUNTER 2025-05-05 19:15 | Emergency (ER) | payer OTHER, SELFPAY ==
[2025-05-05 19:30] VITALS: BP 147/79; PULSE 67; RESP 16; TEMP 36.9; O2SAT 100
[2025-05-05 19:53] LABS: EDSTREPNEGPOS1 Negative (Negative)
--- NOTE | 2025-05-05 20:12 | ED_ITS ---
HPI - Ear Problem General Chief complaint: Ear Stated complaint: Ear Pain/Mouth Pain Time Seen by Provider: 05/05/25 19:25 Source: patient and RN notes reviewed Mode of arrival: ambulatory Limitations: no limitations History of Present Illness HPI Narrative: 34-year-old female presents Express Care complaining of bilateral ear pain for 4-5 days. Patient stated these returned from the beach today. Patient said she was swimming in the ocean and putting her head under water. Patient states she is prone to ear infections. Patient also reports a sore throat. Patient denies any congestion, cough, nausea, vomiting, dizziness, diarrhea, abdominal pain, in the symptoms. Patient has not tried anything to help with the pain. Related Data Home Medications ?Medication ?Instructions ?Recorded ?Confirmed ?Last Taken ?Type losartan 100 mg tablet 100 mg PO DAILY 02/05/22 08/01/22 Unknown History rosuvastatin 10 mg tablet (Crestor) 10 mg PO DAILY 02/05/22 08/01/22 Unknown History albuterol sulfate 90 mcg/actuation 2 puff inhalation QID PRN 04/23/22 08/01/22 Unknown History aerosol inhaler Shortness Of Breath Or Wheezing carvedilol 25 mg tablet 25 mg PO DAILY 08/01/22 08/01/22 Unknown History melatonin 04/21/24 Unknown History aripiprazole 5 mg tablet mg 05/05/25 Unknown History ferrous sulfate 325 mg (65 mg mg 05/05/25 Unknown History iron) tablet levetiracetam 750 mg tablet mg PO 05/05/25 Unknown History naltrexone 50 mg tablet mg 05/05/25 Unknown History sumatriptan succinate 50 mg tablet mg PO 05/05/25 Unknown History Allergies Allergy/AdvReac Type Severity Reaction Status Date / Time sertraline (From Zoloft) Allergy Mild Rash Verified 04/21/24 14:36 Review of Systems Review of Systems: CONSTITUTIONAL: Denies fever, chills, or sweats. EYES: Denies visual changes, redness, or discharge. ENT: Denies rhinorrhea, congestion. Positive for sore throat and otalgia. CARDIOVASCULAR: Denies chest pain, palpitations, or edema. RESPIRATORY: Denies cough or dyspnea. GASTROINTESTINAL: Denies abdominal pain, nausea, vomiting, or diarrhea. GENITOURINARY: Denies dysuria or hematuria. SKIN: Denies rash or itching. MUSCULOSKELETAL: Denies back pain, joint pain, or myalgia. NEUROLOGIC: Denies headache, numbness, or weakness. PSYCHIATRIC: Denies anxiety or depression. All other systems reviewed are negative, except as documented in HPI. [facility] Past Medical History Medical History JASSON (obstructive sleep apnea) Asthma PTSD (post-traumatic stress disorder) Anxiety Seizure disorder Obesity Hypertension Surgical History Surgical History S/P laparoscopic appendectomy 06/28/22 Social History Social History Smoking packs per day: 0.25 Smoking cigarettes per day: 5.0 Smoking status: Current every day smoker Tobacco type: cigarettes Alcohol intake: current Drinks per week: 6 Substance use type: marijuana Spiritual care concerns: No Comments At the time of my signature, I reviewed and agree with the nursing past medical, surgical, social, and family history. There is no relevant family history pertinent to the patient complaint. Exam Narrative: GENERAL: This is a well-nourished, well-developed adult, in no apparent distress. They are non ill-appearing, nontoxic appearing. HEAD: normocephalic, atraumatic. EYES: Sclera clear/white. Conjunctiva normal. Vision is grossly intact. Extraocular movements intact EARS: External ears normal, auditory canals erythematous without exudate, TMs normal without perforation. Hearing grossly intact. NOSE: External nose normal with no obvious nasal discharge, nasal turbinates without redness, no rhinorrhea. THROAT: Mucous membranes moist, posterior pharynx erythematous, no exudate. Uvula midline. NECK: Neck supple, non-tender without lymphadenopathy, masses or thyromegaly. CARDIOVASCULAR: Regular rate and rhythm without murmurs, gallops, or rubs. RESPIRATORY: Clear to auscultation. Breath sounds equal bilaterally. No wheezes, rales, or rhonchi. SKIN: warm, Dry, intact with no suspicious lesions or rash, good texture and turgor. NEURO: awake, alert, and oriented to person, place and time. There were no obvious focal neurologic abnormalities. EXTREMITIES: No joint tenderness, effusion, or edema noted. BACK: Nontender without deformity. Course Course Emergency Course: Portions of this record may have been created with voice recognition software Level of Care: Express Care Visit Vital Signs Vital signs: Vital Signs Temperature 98.5 F 05/05/25 19:30 Pulse Rate 67 05/05/25 19:30 Respiratory Rate 16 05/05/25 19:30 Blood Pressure 147/79 H 05/05/25 19:30 Pulse Oximetry 100 05/05/25 19:30 Oxygen Delivery Room Air 05/05/25 19:30 Temperature 98.5 F 05/05/25 19:30 Pulse Rate 67 05/05/25 19:30 Respiratory Rate 16 05/05/25 19:30 Blood Pressure 147/79 H 05/05/25 19:30 Pulse Oximetry 100 05/05/25 19:30 Oxygen Delivery Room Air 05/05/25 19:30 Reviewed Medical Decision Making MDM Narrative Medical decision making narrative: Rapid strep negative. Throat culture pending. Patient has bilateral otitis externa. Will treat with Ciprodex. Patient may also have and viral pharyngitis. Discussed physical exam findings. Advised supportive measures and signs/symptoms to go to the ER. Pt is appropriate for outpt treatment and f/u. Differential Diagnosis Differential Diagnosis: Viral pharyngitis, strep pharyngitis, otitis media, otitis externa, upper respiratory infection Vital Signs Vital Signs: Vital Signs Temperature 98.5 F 05/05/25 19:30 Pulse Rate 67 05/05/25 19:30 Respiratory Rate 16 05/05/25 19:30 Blood Pressure 147/79 H 05/05/25 19:30 Pulse Oximetry 100 05/05/25 19:30 Oxygen Delivery Room Air 05/05/25 19:30 Temperature 98.5 F 05/05/25 19:30 Pulse Rate 67 05/05/25 19:30 Respiratory Rate 16 05/05/25 19:30 Blood Pressure 147/79 H 05/05/25 19:30 Pulse Oximetry 100 05/05/25 19:30 Oxygen Delivery Room Air 05/05/25 19:30 Lab Data Lab results reviewed: Yes I reviewed the patient's lab results. Labs: Lab Results 05/05/25 Range/Units 19:51 POC Grp A Strep Screen Negative (Negative) Critical Care Time Critical Care Time Critical Care Time: No Discharge Plan Discharge Clinical Impression: Otitis externa Qualifiers: Otitis externa type: swimmer's ear Chronicity: acute Laterality: bilateral Qualified Code(s): H60.333 - Swimmer's ear, bilateral Patient Disposition: Home Condition: Stable Instructions: Antibiotic Form, Swimmer's Ear (ED) Additional Instructions: Swimmer's ear is an infection in the outer ear canal, which runs from your eardrum to the outside of your head. It's often caused by water that remains in your ear, creating a moist environment that encourages the growth of bacteria. Take antibiotic drops as directed. Tylenol and ibuprofen every 8 hours as needed to reduce fever, pain Avoid water or anything into the ear for one week Follow up with your personal physician for further evaluation and treatment within 3-5days. If your symptoms persist, change or worsen significantly, go to the emergency department for further evaluation. Patient Language: Fijian Prescriptions: New ciprofloxacin-dexamethasone 0.3-0.1 % drops,suspension 4 drp EACH EAR Q12H 7 Days Qty: 7.5 0RF No Action losartan 100 mg Tablet 100 mg PO DAILY rosuvastatin [Crestor] 10 mg Tablet 10 mg PO DAILY albuterol sulfate 90 mcg/actuation Hfa Aerosol Inhaler 2 puff INHALATION QID PRN (Reason: Shortness Of Breath Or Wheezing) carvedilol 25 mg tablet 25 mg PO DAILY melatonin naltrexone 50 mg tablet sumatriptan succinate 50 mg tablet PO ferrous sulfate 325 mg (65 mg iron) tablet levetiracetam 750 mg tablet PO aripiprazole 5 mg tablet Follow-up/Referrals: Obi Souza MD [Primary Care Provider] - Time of Disposition: 19:55
== END 2025-05-05 20:00 | disposition home or self-care (01) ==
PROVIDERS: PCP Internal Medicine
DX: H60.333 Swimmer's ear, bilateral (principal); F17.210 Nicotine dependence, cigarettes, uncomplicated; F12.90 Cannabis use, unspecified, uncomplicated; I10 Essential (primary) hypertension; J45.909 Unspecified asthma, uncomplicated; E66.9 Obesity, unspecified; Z68.41 Body mass index [BMI] 40.0-44.9, adult
CPT/HCPCS: 87081; 87880; 99213; G0463